=== PATIENT | female | born 1980 | race Caucasian/White ===

== ENCOUNTER 2018-01-04 23:37 | Emergency (ER) | payer BC, OTHER ==
[~2018-01-04] VITALS: Ht 157.5 cm; Wt 104.3 kg
[~2018-01-04 23:37] MED LIST: APAP500 PO; BENADRYL25 MG PO; DERMOPLAST SPRA56 ML; HYDROCORTISONE30 G9 TOP; IBUPROFEN 600600 M1 PO; LANOLIN56 GM; NORCO 5-325 TA1 EACH PO; SENNA PO; TUCKS MEDICATE1 EAC1
== END 2018-01-05 01:45 | disposition home or self-care (01) ==
LOC: ER 23:37
DX: K20.8 Other esophagitis (principal)